=== PATIENT | female | born 1975 | race Caucasian/White ===

== ENCOUNTER 2018-03-13 05:54 | Day surgery (SDC) | payer MEDICAID ==
[2018-03-12 11:34] LABS: EOSINOPHILS # (AUTO) 0.1 K/uL (0-0.4); EOSINOPHILS % (AUTO) 2.4 % (0.0-4.0); HEMATOCRIT 32.4 % (36-48); LYMPHOCYTES # (AUTO) 1.8 K/uL (2.5-16.5); LYMPHOCYTES % (AUTO) 35.6 % (20.5-51.1); MEAN CORPUSCULAR HEMOGLOBIN 25 pg (27-31); MEAN CORPUSCULAR HGB CONC 31 g/dL (33-37); MEAN CORPUSCULAR VOLUME 79.9 fL (80-94); MONOCYTES # (AUTO) 0.5 K/uL (0.8-1.0); MONOCYTES % (AUTO) 9.4 % (1.7-9.3); NEUTROPHILS # (AUTO) 2.6 K/uL (1.8-7.7); NEUTROPHILS % (AUTO) 51.6 % (42.2-75.2); PLATELET COUNT (AUTO) 274 K/uL (140-450); RED BLOOD CELL COUNT(AUTO) 4.06 MIL/uL (4.20-5.40); RED CELL DISTRIBUTION WIDTH 16.3 % (11.6-13.7)
[2018-03-12 11:57] LABS: ALBUMIN 3.8 g/dL (3.4-5.0); ANION GAP 7.8 (8-16); CARBON DIOXIDE 28.1 mmol/L (21-32); CREATININE 0.7 mg/dL (0.6-1.3); POTASSIUM 3.9 mmol/L (3.5-5.1); TOTAL BILIRUBIN 0.2 mg/dL (0.0-1.0)
[~2018-03-13] VITALS: Ht 167.6 cm; Wt 68.0 kg
[2018-03-13] MEDS ORDERED: LABETALOL 20 MG/4 ML VIAL IVP ONE (07:28)
[2018-03-13] MEDS ORDERED: KETAMINE 500 MG/5 ML VIAL ONE (07:38)
[2018-03-13] MEDS ORDERED: ONDANSETRON 4 MG/2 ML VIAL IVP PRN (07:55)
[2018-03-13] MEDS ORDERED: HYDROmorphone 1 MG/ML AMP IVP PRN (07:55)
== END 2018-03-13 10:35 | disposition home or self-care (01) ==
LOC: MDS 05:54 → MMU 05:55 → MDS 10:35
PROVIDERS: ATTEND Internal Medicine Gastroenterology
DX: K80.50 Calculus of bile duct without cholangitis or cholecystitis without obstruction (principal); Z90.49 Acquired absence of other specified parts of digestive tract; Z98.890 Other specified postprocedural states
CPT/HCPCS: 36415; 43277; 71045; 74330; 80053; 84703; 85025; 93005; C1727; C1769; J3490; J7120; 76001; 77003